=== PATIENT | male | born 1930 | race Caucasian/White ===

== ENCOUNTER → 2018-06-14 | Day surgery (SDC) | payer MEDICARE, BC ==
[2018-06-13 15:47] LABS: BASOPHILS % 0.7 % (0.0-1.0); EOSINOPHILS # (AUTO) 0.2 (0.0-0.4); EOSINOPHILS % 3.5 % (0.0-6.0); HEMATOCRIT 42.1 % (38.2-49.6); LYMPHOCYTES % 17.3 % (18.0-39.1); MEAN CORPUSCULAR HEMOGLOBIN 31.5 pg (28-32); MEAN CORPUSCULAR HGB CONC 33.3 g/dL (31-35); MEAN CORPUSCULAR VOLUME 94.6 fL (81-99); MONOCYTES # (AUTO) 0.5 (0.2-0.8); MONOCYTES % 8.5 % (4.4-11.3); NEUTROPHILS # (AUTO) 4.2 (2.1-6.9); NEUTROPHILS % 69.7 % (38.7-80.0); PLATELET COUNT 169 x10e3/uL (140-360); RED BLOOD COUNT 4.45 x10e6/uL (4.3-5.7); RED CELL DISTRIBUTION WIDTH 12.4 % (11.7-14.4)
[2018-06-13 16:10] LABS: ALANINE AMINOTRANSFERASE < 6 IU/L (0-55); ALBUMIN 3.7 g/dL (3.5-5.0); ALBUMIN/GLOBULIN RATIO 1.2 (0.8-2.0); ALKALINE PHOSPHATASE 66 IU/L (40-150); ANION GAP 9.5 mmol/L (8-16); BLOOD UREA NITROGEN 16 mg/dL (7-26); BUN/CREATININE RATIO 16 (6-25); CALCIUM 9.5 mg/dL (8.4-10.2); CARBON DIOXIDE 26 mmol/L (22-29); CHLORIDE 103 mmol/L (98-107); CREATININE, SERUM 0.98 mg/dL (0.72-1.25); EST GLOMERULAR FILTRATION RATE > 60 ML/MIN (60-); GLUCOSE 98 mg/dL (74-118); POTASSIUM 4.5 mmol/L (3.5-5.1); SODIUM 134 mmol/L (136-145)
[~2018-06-14] VITALS: Ht 171.4 cm; Wt 59.0 kg
[2018-06-14] VITALS (12 sets, daily range): BP systolic 136–181; BP diastolic 83–99
[~2018-06-14] MED LIST: ALPRAZOLAM 0.5 MG TAB ONE; CARBIDOPA-LEVO1 EAC4 PO; DIPHENHYDRAMINE HCL 25 MG CAP ONE; FENTANYL CITRATE/PF 100MCG/2 ML INJ ONE; FINASTERIDE5 MG PO; FLOMAX0.4 MG PO; HEPARIN SOD/SOD CHLORIDE 2,000 ML ONE; IOPAMIDOL 300MG/ML 100 ML INFUS..BTL IV ONE; LIDOCAINE HCL 2% LOCAL 20 ML VIAL ONE; LIPITOR20 MG PO; METOPROLOL TART25 MG PO; MIDAZOLAM HCL 2 MG/2 ML VIAL ONE; NEUPRO1 EAC1 TD; OMEGA XL PO; PRILOSEC OTC20 MG PO; SENOKOT-S TABL1 EACH PO; SINEMET 25-1001 EACH PO; SODIUM CHLORIDE 0.9% 1000ML 1,000 ML ONE; [UNRECOGNIZED DRUG - OTHER] PO; [UNRECOGNIZED DRUG - OTHER] PO; [UNRECOGNIZED DRUG - OTHER] PO; [UNRECOGNIZED DRUG - OTHER] PO
--- NOTE | 2018-06-14 14:05 | NUR ---
Patient brought back to ACU bay 7. Patient being prepped in usual fashion for left heart catherization procedure.
--- OUTSIDE RECORDS SUMMARY | 2018-06-14 14:08 | XMS REPORT | Clinical Summary ---
Author Author [facility] Address Unknown Phone Unavailable Care Team Providers Care Assembly Line Machine Operator Name Role Phone Sampson Baxter MD PCP Allergies No Known Allergies Medications End Date Status Medication Sig Dispensed Refills Start Date Active tamsulosin (FLOMAX) 0.4 Take 0.4 mg 0 mg capsule,extended by mouth release 24hr daily. Active omeprazole (PriLOSEC) 20 Take 20 mg by 0 MG capsule mouth daily. Active UNABLE TO FIND Take 1 tablet 0 by mouth daily. Med Name: Ultimate Prostate Formula Active UNABLE TO FIND Take 1 tablet 0 by mouth daily. Med Name: Niacin / Zinc Active finasteride (PROSCAR) 5 Take 5 mg by 3 mg tablet mouth 8 nightly. Active sennosides/docusate Take by 0 sodium (SENOKOT-S ORAL) mouth. 01/29/2019 Active carbidopa-levodopa Take 2 540 tablet 3 (SINEMET) 25-100 mg per tablets by 8 tablet mouth 3 (three) times a day. 02/12/2019 Active carbidopa-levodopa Take 1 tablet 90 tablet 3 (SINEMET CR) 50-200 mg by mouth 8 per CR tablet nightly. Active multivitamin with Take 1 tablet 0 minerals tablet by mouth daily. Active metoprolol tartrate Take 12.5 mg 0 (LOPRESSOR) 25 mg tablet by mouth daily. 10/11/2017 Discontinued metoprolol tartrate Take 25 mg by 0 (LOPRESSOR) 25 mg tablet mouth daily. 03/11/2018 Discontinued CHOLECALCIFEROL, VITAMIN Take 2,500 mg 0 D3, (VITAMIN D3 ORAL) by mouth daily. 03/11/2018 Discontinued OMEGA-3 FATTY ACIDS/FISH Take 650 mg 0 OIL (OMEGA 3 FISH OIL by mouth ORAL) daily. 03/11/2018 Discontinued CALCIUM POLYCARBOPHIL Take 1 tablet 0 (PERDIEM ORAL) by mouth as needed. 10/11/2017 Discontinued linaclotide (LINZESS) 145 Take 145 mcg 0 mcg capsule by mouth daily. 01/15/2018 carbidopa-levodopa Take 2 540 tablet 3 (SINEMET) 25-100 mg per tablets by 7 tablet mouth 3 (three) times a day. 10/11/2017 Discontinued donepezil (ARICEPT) 10 MG Take 1 tablet 30 tablet 3 tablet (10 mg total) 7 by mouth nightly. 02/12/2018 Discontinued carbidopa-levodopa Take 1 tablet 30 tablet 11 (SINEMET CR) 50-200 mg by mouth 8 per CR tablet nightly. 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/2016 Encounters Care Team Description Date Type Specialty Esvin Hansen MD Parkinson disease (HCC) (Primary Dx); Mild cognitive impairment; Idiopathic peripheral neuropathy; Gait disorder; Obstructive sleep apnea; REM sleep behavior disorder 03/11/2018 Office Visit Neurology Daisy Rockwell MA 02/12/2018 Telephone Neurology Esvin Hansen MD 01/29/2018 Refill Neurology Daisy Rockwell MA 10/18/2017 Telephone Neurology Daisy Rockwell MA 10/12/2017 Telephone Neurology Esvin Hansen MD Parkinson disease (Primary Dx); Mild cognitive impairment; Idiopathic peripheral neuropathy; Obstructive sleep apnea; Gait disorder; REM sleep behavior disorder 10/11/2017 Office Visit Neurology Esvin Hansen MD Parkinson disease (Primary Dx); Idiopathic peripheral neuropathy; Mild cognitive impairment; Gait disorder; REM sleep behavior disorder; Obstructive sleep apnea 06/19/2017 Office Visit Neurology after 06/13/2017 Family History Medical History Relation Name Comments Stroke Father Cancer Mother Relation Name Status Comments Father (Age 71) Mother (Age 48) Social History Date Tobacco Use Types Packs/Day Years Used Quit: 1966 Former Smoker Cigarettes, Pipe Smokeless Tobacco: Never Used Tobacco Cessation: Counseling Given: Yes Alcohol Use Drinks/Week oz/Week Comments Yes socially (wine/beer) Sex Assigned at Date Recorded Not on file Industry Job Start Date Occupation Not on file Not on file Not on file Travel End Travel History Travel Start No recent travel history available. 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 Height 165.1 cm (5' 5") 03/11/2018 3:23 PM AUTO SERVICE DISPATCHER Body Mass Index 21.6 Plan of Treatment Care Team Description Date Type Specialty Esvin Hansen MD [address] [facility] [address] [place] [address] 09/12/2018 Office Visit Neurology Health Maintenance Due Date Last Done Comments SHINGLES VACCINES (#1) 1980 65+ PNEUMOCOCCAL VACCINE 1995 (1 of 2 - PCV13) PNEUMOCOCCAL 1995 POLYSACCHARIDE VACCINE AGE 65 AND OVER INFLUENZA VACCINE 11/07/2017 Results Not on fileafter 06/13/2017 Insurance Payer Benefit Subscriber ID Type Phone Address Plan / Group MEDICARE MEDICARE xxxxxxxxxx Medicare [place], [place] PART A AND B BCBS BCBS xxxxxxxxx PPO CHOICE PPO/PANCHITO BARRIENTOS PPO Advance Directives Patient has advance care planning documents on file. For more information, charlotte desai contact: Serge May [address] [place] [place] [address]
--- OUTSIDE RECORDS SUMMARY | 2018-06-14 14:08 | XMS REPORT ---
Author Author [facility] Address Unknown Phone Unavailable Care Team Providers Care Technical Program Manager Name Role Phone Unavailable Unavailable Payers Payer Name Policy Type Policy Number Effective Date Expiration Date Problems This patient has no known problems. Allergies, Adverse Reactions, Alerts Allergy Name Allergy Type Status Severity Reaction(s) Onset Date Inactive Date Treating Clinician Comments No Known Allergies DA Active U 2018-06-11 00:00:00 No Known Contrast Allergies DA Active U 2004-06-25 00:00:00 No Known Drug Allergies DA Active U 2004-06-25 00:00:00 No Known Food Allergies DA Active U 2004-06-25 00:00:00 No Known Other Allergies DA Active U 2004-06-25 00:00:00 No Known Drug Intolerances DA Active U 2001-10-25 00:00:00 Medications This patient has no known medications. Results Test Description Test Time Test Comments Text Results Atomic Results Result Comments - MRA HEAD W/O CONTRAST 2018-06-11 22:31:00 FAX: Mindy Jones [phone] [place]: St: ADM FAX: Sampson España MD [phone] FAX: Arie Thomas MD [phone] Name: SHAKIRA TODD [facility] Nori Pittman : 1930 Age/S: 88/M [address] [place] [address] Blvd Unit #: [id number] Loc: [place] [address] Phys: Mindy Snow MD Acct: [id number] Dis Date: Status: ADM IN PHONE #: [phone] Exam Date: 06/11/20182110 FAX #: [phone] Reason: transient dysarthria EXAMS: CPT CODE: [id number] MRA HEAD W/O CONTRAST 82735 Study: - MRA HEAD W/O CONTRAST 06/11/2018 7:47 PM Patient Name: SHAKIRA TODD MR: [id number] : 1930; Age: 88 years y/o Male Ordering Physician: Mindy Almeida MD Clinical Indication: transient dysarthria Comparison: None Technique: Magnetic resonance angiography of the [place] of [place] was performed without contrast. Three-dimensional rotational images were also prepared. FINDINGS: ANTERIOR CIRCULATION: INTERNAL CAROTID ARTERIES: No focal stenosis or aneurysm. MIDDLE CEREBRAL ARTERIES: No focal stenosis or aneurysm in the M1 and M2 segments. The peripheral MCA branches appear normal. ANTERIOR CEREBRAL ARTERIES: No focal stenosis or aneurysm. Normal anterior communicating artery. POSTERIOR CIRCULATION: VERTEBROBASILAR SYSTEM: No focal stenosis or aneurysm. POSTERIOR CEREBRAL ARTERIES: No focal stenosis or aneurysm. Persistent origin of the right posterior cerebral artery. SUPERIOR CEREBELLAR ARTERIES: Normal in appearance. AICA: Normal in appearance. PICA: Normal right PICA. The left PICA is never well demonstrated. IMPRESSION: PAGE 1 Signed Report (CONTINUED) FAX: Mindy Jones [place]: St: [facility] FAX: Sampson España MD [phone] FAX: Arie Thomas MD [phone] Name: SHAKIRA TODD [facility] : 1930 Age/S: 88/M [address] [place] [address] Blvd Unit #: [id number] Loc: [place] [address] Phys: Mindy Snow MD Acct: [id number] Dis Date: Status: ADM IN PHONE #: [phone] Exam Date: 06/11/20182110 FAX #: [phone] Reason: transient dysarthria EXAMS: CPT CODE: [id number] MRA HEAD W/O CONTRAST 85738 <Continued> 1. Nonvisualized left PICA. However, no acute stroke is seen on MR brain without contrast performed at the same time. 2. Normal variant persistent origin of the right posterior cerebral artery. at 2231 Reported and signed by: Bala Riley M.D. CC: Mindy Almeida MD; Sampson Baxter MD; Arie De Souza MD Technologist: RT [place](R)(CT) [facility] Date/Time/By: 06/11/2018 (2230) : By: [email or web address] Orig Print D/T: S: 06/11/2018 (2984) PAGE 2 Signed Report - MRA NECK W/CONT 2018-06-11 22:26:00 FAX: Mindy Jones [phone] [place]: St: ADM FAX: Sampson España MD [phone] FAX: Arie Thomas MD [phone] Name: SHAKIRA TODD [facility] : 1930 Age/S: 88/M [address] [place] [address] Blvd Unit #: [id number] Loc: [place] [address] Phys: Mindy Snow MD Acct: [id number] Dis Date: Status: ADM IN PHONE #: [phone] Exam Date: 06/11/20182110 FAX #: [phone] Reason: transient dysarthria EXAMS: CPT CODE: [id number] MRA NECK W/CONT 46758 Study: - MRA NECK W/CONT 06/11/2018 7:47 PM Patient Name: SHAKIRA TODD MR: [id number] : 1930; Age: 88 years y/o Male Ordering Physician: Mindy Almeida MD Clinical Indication: transient dysarthria Comparison: None TECHNIQUE: Magnetic resonance angiography of the neck was performed with and without intravenous contrast. Three-dimensional rotational images were also prepared. IV contrast: MultiHance 12 mL. MRA NECK Aortic arch and great vessel origins: No significant atherosclerosis, narrowing, aneurysm, or dissection. Brachiocephalic trunk: No significant atherosclerosis, narrowing, aneurysm, or dissection. Subclavian arteries: No significant narrowing in the visualized portions after accounting for mild artifact. Right carotid artery: Mildly tortuous normal caliber right common carotid artery. Approximately 50-60% narrowing is suspected at the right cervical ICA origin. The remaining portions of the right cervical ICA are normal. Left carotid artery: Normal without evidence of significant atherosclerosis, narrowing, or dissection. Vertebral arteries: No significant atherosclerosis, narrowing, or dissection. Any reported ICA stenosis directly references the distal internal carotid diameter as the denominator for stenosis measurement. PAGE 1 Signed Report (CONTINUED) FAX: Mindy Jones [phone] [place]: St: ADM FAX: Sampson España MD [phone] FAX: Arie Thomas MD [phone] Name: SHAKIRA TODD [facility] [place] : 1930 Age/S: 88/M [address] [place] [address] Unit #: [id number] Loc: [place] [address] Phys: Mindy Snow MD Acct: [id number] Dis Date: Status: ADM IN PHONE #: [phone] Exam Date: 06/11/2018 211 FAX #: [phone] Reason: transient dysarthria EXAMS: CPT CODE: [id number] MRA NECK W/CONT 42103 <Continued> IMPRESSION: Approximately 50-60% narrowing of the right cervical ICA origin. SL: TPAINTER-H at 2226 Reported and signed by: Bala Riley M.D. CC: Mindy Almeida MD; Sampson Baxter MD; Arie De Souza MD Technologist: RT [place](R)(CT) Trnscrd Date/Time/By: 06/11/2018 (2225) : By: [email or web address] Orig Print D/T: S: 06/11/2018 (8874) PAGE 2 Signed Report - MRI BRAIN WO/W CONT 2018-06-11 22:13:00 FAX: Mindy Jones [phone] [place]: St: ADM FAX: Sampson España MD [phone] FAX: Arie Thomas MD [phone] Name: SHAKIRA TODD [facility] [place] : 1930 Age/S: 88/M [address] [place] [address] Unit #: [id number] Loc: [place] [address] Phys: Mindy Snow MD Acct: [id number] Dis Date: Status: ADM IN PHONE #: [phone] Exam Date: 06/11/20182110 FAX #: [phone] Reason: transient dysarthria EXAMS: CPT CODE: [id number] MRI BRAIN WO/W CONT 58711 Study: - MRI BRAIN WO/W CONT 06/11/2018 7:47 PM Patient Name: SHAKIRA TODD MR: [id number] : 1930; Age: 88 years y/o Male Ordering Physician: Mindy Almeida MD Clinical Indication: transient dysarthria Comparison: CTA head 06/11/2018. TECHNIQUE: TECHNIQUE: Multiplanar precontrast and postcontrast MRI of the brain was performed on a 1.5 More magnet. Contrast: MultiHance 12 mL. FINDINGS: BRAIN PARENCHYMA: General: Mild to moderate diffuse age-appropriate cerebral atrophy associated with mild nonspecific abnormal signal in the periventricular deep white matter most consistent with old microangiopathic ischemic change. Minimal old pontine ischemic change. Vent ricles: Normal size and appearance. Enhancement: No abnormal enhancement. Acute Findings: No evidence of acute intracranial hemorrhage, mass, mass effect, midline shift, or extra-axial fluid collection. Diffusion Weighted Images: No evidence of restricted diffusion to suggest acute or subacute ischemia. Gradient Images: No abnormal hypointense signal to suggest old hemorrhage. Midline Structures: The pituitary gland, corpus callosum, and remaining midline structures PAGE 1 Signed Report (CONTINUED) FAX: Mindy Jones [phone] [place]: St: [facility] FAX: Sampson España MD [phone] FAX: Arie Thomas MD [phone] Name: SHAKIRA TODD [facility] : 1930 Age/S: 88/M [address] [place] [address] Blvd Unit #: [id number] Loc: [place] [address] Phys: Mindy Snow MD Acct: [id number] Dis Date: Status: ADM IN PHONE #: [phone] Exam Date: 06/11/20182110 FAX #: [phone] Reason: transient dysarthria EXAMS: CPT CODE: [id number] MRI BRAIN WO/W CONT 34045 <Continued> are normal. VASCULATURE: Arterial: The major intracranial arterial flow voids are present. Venous: The dural venous sinus flow voids are grossly normal. PARANASAL SINUSES: Minimal mucoperiosteal thickening in the ethmoid sinus. MASTOIDS: Clear. SOFT TISSUES AND ORBITS: The visualized portions are normal. IMPRESSION: Mild to moderate diffuse age- appropriate cerebral atrophy associated with mild nonspecific abnormal signal in the periventricular deep white matter most consistent with old microangiopathic ischemic change. Minimal old pontine ischemic change. No acute intracranial abnormality. Minimal chronic sinusitis. SL: TPAINTER-H at 2213 Reported and signed by: Bala Riley M.D. CC: Mindy Almeida MD; Sampson Baxter MD; Arie De Souza MD Technologist: RT [place](R)(CT) Trnscrd Date/Time/By: 06/11/2018 (8093) : By: [email or web address] Orig Print D/T: S: 06/11/2018 (9962) PAGE 2 Signed Report TROPONIN-I 2018-06-11 21:02:00 TROPONIN-I (test code=TROPI) 0.195 ng/mL 0.000-0.045 Negative: <=0.045 Positive: >=0.046 Correlation with serial results, other cardiac markers andclinical findings is necessary to determine the clinicalsignificance of this result. Results using different methodologies should not be comparedto one another as quantitative results may vary by method. COMMENTS: 3 troponins total (including troponin done in ED)- XR CHEST 1 V 2018-06-11 19:13:00 FAX: Mayi Wilkins MD [phone] [place]: St: [facility] FAX: Sampson España MD [phone] Name: SHAKIRA TODD [facility] : 1930 Age/S: 88/M [address] [place] [address] Blvd Unit #: [id number] Loc: [place] [address] Phys: Mayi Wilkins MD Acct: [id number] Dis Date: Status: ADM IN PHONE #: [phone] Exam Date: 06/11/2018 1844 FAX #: [phone] Reason: chest pain EXAMS: CPT CODE: [id number] XR CHEST 1 V 16072 CHEST, ONE VIEW: HISTORY: Acute chest pain. COMPARISON EXAM(S): None available FINDINGS: This single portable view was obtained at 1840 hours on 06/11/2018 and shows the cardiac silhouette to be within normal limits and no acute infiltrates or effusions. There is evidence of air trapping. Degenerative changes are noted at the shoulders. IMPRESSION: 1. No acute changes. 2. Air trapping suggesting underlying emphysematous changes. 3. No prior exams for comparison. SL:01 at 1913 Reported and signed by: Jose Angel Novoa M.D. CC: Mayi Wilkins MD; Sampson Baxter MD Technologist: RT Cam(R) Trnscrd Date/Time/By: 06/11/2018 (1912) : By: [email or web address] Orig Print D/T: S: 06/11/2018 (1915) PAGE 1 Signed Report LIPOPROTEIN [id number] 18:18:00* Test Item Value Reference Range Comments LIPOPROTEIN LDL (test code=LDL) 123 mg/dL 0-100 <100 [id number] NEAR OPTIMAL/ABOVE [id number] HIGH>SU=348 VERY HIGH*Guidelines provided by the National Cholesterol EducationProgram Adult Treatment Panel III BASIC METABOLIC [id number] 17:51:00* Test Item Value Reference Range Comments SODIUM (test code=NA) 140 mEq/L 134-147 POTASSIUM (test code=K) 3.9 mEq/L 3.4-5.0 CHLORIDE (test code=CL) 109 mEq/L 100-108 CARBON DIOXIDE (test code=CO2) 24 mEq/L 21-33 ANION GAP (test code=GAP) 11 0-20 GLUCOSE (test code=GLU) 103 mg/dL 70-110 BLOOD UREA NITROGEN (test code=BUN) 17 mg/dL 7-18 GLOMERULAR FILTRATION RATE (test code=GFR) 57.1 70-80 Units of measure=ml/min/1.73 m2 CREATININE (test code=CREAT) 1.2 mg/dL 0.6-1.3 CALCIUM (test code=CA) 8.9 mg/dL 8.0-10.5 [id number] 17:51:00* Test Item Value Reference Range Comments TROPONIN-I (test code=TROPI) 0.225 ng/mL 0.000-0.045 Negative: <=0.045 Positive: >=0.046 Correlation with serial results, other cardiac markers andclinical findings is necessary to determine the clinicalsignificance of this result. Results using different methodologies should not be comparedto one another as quantitative results may vary by method. PROTHROMBIN [id number] 17:25:00* Test Item Value Reference Range Comments PROTHROMBIN TIME PATIENT (test code=PTP) 12.0 SECONDS 9.3-12.9 INTERNATIONAL NORMAL RATIO (test code=INR) 1.1 0.8-1.2 TARGET INR BY INDICATION Indication INR1. Prophylaxis of venous thrombosis 2.0 - 3.0 (orthopedic surgery), Prophylaxis of venous thrombosis (other than high-risk surgery), Treatment of Deep Vein Thrombosis/Pulmonary Embolism, Prevention of systemic embolism - Tissue heart valves, Acute Myocardial Infarction (to prevent systemic embolism), Valvular heart disease, Atrial Fibrillation, Bileaflet mechanical valve in aortic position.2. Mechanical prosthetic valves (high risk), 2.5 - 3.5 Presence of Lupus Anticoagulant or Antiphospholipid Antibodies, Prevention of systemic embolism - Acute Myocardial Infarction (to prevent recurrent infarct). THROMBOPLASTIN TIME [id number] 17:25:00* Test Item Value Reference Range Comments THROMBOPLASTIN TIME PARTIAL (test code=PTT) 18.9 Seconds 25.0-39.5 Therapeutic Range: 61.8-83.8 Sec Effective 05/07/2013 - CT HEAD/BRAIN W/O [id number] 17:21:00 Name: SHAKIRA TODD [facility] : 1930 Age/S: 88 / M [address] [place] [address] Unit #: [id number] Loc: [place] [address] Phys: Mayi Wilkins MD Acct: [id number] Dis Date: Status: REG ER PHONE #: [phone] Exam Date: 06/11/2018 1710 FAX #: [phone] Reason: CODE NEURO - SLURRED SPEECH [facility] 1615 EXAMS: CPT CODE: [id number] CT HEAD/BRAIN W/O CONT 90636 Patient: SHAKIRA TODD. : 1930; Age: 88 years; Gender: Male. MR: [id number]. Ordering physician: Mayi Wilkins MD. CT BRAIN WITHOUT INTRAVENOUS CONTRAST: HISTORY: Code neuro, slurred speech. COMPARISON: . FINDINGS: Computed tomography of the brain was performed utilizing contiguous transaxial sections from skull base to the vertex without the administration of intravenous contrast. Coronal and sagittal reformatted images were obtained. CT imaging was performed with exposure control parameters to reduce radiation dose. Total DLP: 419.70 mGy-cm There is prominence of the ventricles, cortical sulci and basilar cisterns compatible with age related involutional c hange. Periventricular and subcortical white matter hypodensities are compatible with age related small vessel microvascular change. 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 There is no evidence of midline shift, mass lesion, intraparench ymal hemorrhage, acute infarction, extra-axial collection or skull f racture. The posterior fossa is unremarkable. The partially visua lized orbits, paranasal sinuses and mastoid air cells are unremarkable. Old krissy holes noted. IMPRESSION: 1. No evidence of acute intracranial pathology. 2. Age related invo lutional and small vessel microvascular changes as described. 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 These findings were discussed with Anne Wilkins MD on 06/11/2018 5:18 PM. PAGE 1 Signed Report (CONTINUED) [facility]: [facility] 1930 Ag e/S: 88 / M [address] [place] [address] Blvd Unit #: [id number] Loc: [place] [address] Phys: Mayi Wilkins MD Acct: [id number] Dis Date: Status: REG ER PHONE #: [phone] Exam Date: 06/11/2018 1710 FAX #: [phone] Reason: CODE NEURO - SLURRED SPEECH [facility] 1615 EXAMS: CPT CODE: [id number] CT HEAD/BRAIN W/O CONT 85849 <Continued> SL: [id number] at 1721 Reported and signed by: Byron Honeycutt M.D. CC: Mayi Wilkins MD Technologist:Fiona Flores, RT(R) CTDI: DLP: Trnscb Date/Time: 06/11/2018 (1720) [email or web address] Orig Print D/T: S: 06/11/2018 (172) CTDI: DLP: PAGE 2 Signed Report CBC W/O [id number] 17:17:00* Test Item Value Reference Range Comments WHITE BLOOD CELL (test code=WBC) 6.78 x10 3/uL 4.5-11.0 RED BLOOD CELL (test code=RBC) 4.77 x10 6/uL 4.00-5.60 HEMOGLOBIN (test code=HGB) 14.9 g/dL 12.5-16.9 HEMATOCRIT (test code=HCT) 46.3 % 37.5-50.7 MEAN CELL VOLUME (test code=MCV) 97.1 fL 81.0-99.0 MEAN CELL HGB (test code=MCH) 31.2 pg 27.0-33.0 MEAN CELL HGB CONCETRATION (test code=MCHC) 32.2 g/dL 33.0-37.0 RED CELL DISTRIBUTION WIDTH CV (test code=RDW) 12.2 % 11.5-14.5 RED CELL DISTRIBUTION WIDTH SD (test code=RDW-SD) 44.2 fL 37.0-54.0 PLATELET COUNT (test code=PLT) 134 x10 3/uL 150-400 MEAN PLATELET VOLUME (test code=MPV) 10.9 fL 7.0-9.0
--- NOTE | 2018-06-14 16:50 | NUR ---
Continuity of care to [facility] ACU 7 review of procedural findings, orders and medications given. Patient drowsy, easily aroused. maintains airway and room air saturations of 98-99%. No gross issues of pressure, pain, pallor or dysrhythmia. IV site patent with NS 0.9% at 75ml/hr by dial-flow to left hand. patient hemodynamically stable with hemostasis. right groin dressing CDI w/o s/s of bleeding. patient transferred to [facility] assist w/o incident. transported out of procedure room - [facility] procedure: Diagnostic coronary angiography and right femoral sheath ogram Sheath puller: Dr Zaldivar , unsuccessful toritolose, Rolo FLOOR INSTALLER holding manual pressure Meds Given Intra-Procedure Sedatives Versed - 0.5 mg Fentanyl - 25 mcg Fluids Input - 100ml Output - dtv Contrast Isovue 370 - 50ml
--- NOTE | 2018-06-14 17:11 | NUR ---
Kitchen notified of diet order.
--- NOTE | 2018-06-14 18:05 | NUR ---
1805pm Received report from Jack ALMARAZ s/o [facility] findings Moderated CAD. DR Zaldivar case with medical RX fix. Rt groin approach with Perclose device. Site with no bleeding or hematoma. Dressing dry and intact.PPx4 PD/DT palpable. Baseline orientation achieved with pt known Parkinson Dz and fall risk. Call light at bedside, bed in low position, side rails up. Resp regular with 100% sat. on room air. Abdomen soft and non tender denies necessity to defecate. Voided x2 300+ cc clear urine.Daughter Bernarda Smith at bedside. Schedule time for dc 20:30pm. POC discussed with family at bedside and papers signed and given pt. Dr Smith was at bedside and no teachings needs assessed. ds/nilay
--- NOTE | 2018-06-14 20:00 | NUR ---
Pt has been resting during this time w/o incident of pain, sob, or need. right groin dressing with trace pale blood. no hematoma, right leg warm and dry, pulses present. VS wnl w/ slight trend up. tolerated modest PO., voided 400ml total between 2 separate voidings. family has remained at bedside during this time w/ offers to break. -cgf
--- NOTE | 2018-06-14 20:15 | NUR ---
2015 HOB elevated Rt groin site w/o hematoma or bleeding. Bilateral PPx4 .Ate few bites tolerating well. Assist dressing and dc per w/c in accompiance of daughter at 2030pm. Family has POc and papers and knows importance of followup care. Pt denies C/o CP or SOB. Stasis remains achieved at groin suture site. Pt vs and ekg stable on discharge to home care Family to stay with pt tonight. erick/nilay Addendum: 06/14/18 at 2252 by Lorenza Haney RN Iv was removed Pressure with stasis achieved and 2x2 dressing and Coban applied to iv site area No bruising or bleeding noted.
--- NOTE | 2018-06-25 13:42 | Operative Report ---
DATE OF PROCEDURE: 06/14/2018 SURGEON: Ramírez Zaldivar MD INDICATION: Coronary artery disease, abnormal stress test. PROCEDURES PERFORMED: 1. Left heart catheterization, selective coronary angiography. 2. Deployment of failed right groin probe, Rodríguez Perclose closure device. COMPLICATIONS: None. RECOMMENDATIONS: Medical therapy. DESCRIPTION OF PROCEDURE: Access obtained in the right femoral artery. A 6-[place] sheath was placed. Diagnostic coronary angiogram revealed moderate coronary artery disease, diffuse 30% to 50% stenosis. Right coronary artery was nondominant. No focal critical stenosis or occlusions were noted that required intervention. Right groin sheath removed under manual pressure following failure of Perclose closure device. The patient discharged home same day. Ramírez Zaldivar MD [facility] /[id number]
== END | disposition home or self-care (01) ==
LOC: CATH LAB 14:05
PROVIDERS: ATTEND Internal Medicine Interventional Cardiology
DX: I25.10 Atherosclerotic heart disease of native coronary artery without angina pectoris (principal); R94.39 Abnormal result of other cardiovascular function study; Z01.812 Encounter for preprocedural laboratory examination; Z86.73 Personal history of transient ischemic attack (TIA), and cerebral infarction without residual deficits
CPT/HCPCS: 36415; 80053; 85025; 93454; C1725; C1769; J2001; J2250; J7030; Q9967

== ENCOUNTER 2019-03-12 09:15 | Emergency (ER) | payer MEDICARE, BC ==
[~2019-03-12] VITALS: Ht 171.4 cm; Wt 56.7 kg
[~2019-03-12 09:15] MED LIST changes: -ALPRAZOLAM 0.5 MG TAB ONE; -DIPHENHYDRAMINE HCL 25 MG CAP ONE; -FENTANYL CITRATE/PF 100MCG/2 ML INJ ONE; -HEPARIN SOD/SOD CHLORIDE 2,000 ML ONE; -IOPAMIDOL 300MG/ML 100 ML INFUS..BTL IV ONE; -LIDOCAINE HCL 2% LOCAL 20 ML VIAL ONE; -MIDAZOLAM HCL 2 MG/2 ML VIAL ONE; -SODIUM CHLORIDE 0.9% 1000ML 1,000 ML ONE
[2019-03-12] MEDS ORDERED: ONDANSETRON HCL INJ 2MG/ML 2ML 2 MG/ML VIAL IV STA (09:32)
[2019-03-12] MEDS ORDERED: SODIUM CHLORIDE 0.9% 1000ML 500 ML IV STA (09:32)
[2019-03-12] MEDS ORDERED: PANTOPRAZOLE 40 MG 10ML VIAL IV STA (09:32)
[2019-03-12] MEDS ORDERED: DONNATAL/LIDOCAINE/MAALOX 30 ML SUSP PO ONE (09:45)
--- NOTE | 2019-03-12 10:27 | Diagnostic Imaging Report ---
Chest, 1 view, 03/12/2019. History: Swallowed pill, felt burning sensation in the neck. Comparison: None available. Findings: The cardiomediastinal silhouette and pulmonary vasculature are within normal limits for a portable exam. There is no focal consolidation or pleural effusion. Degenerative changes are present in the right shoulder and thoracic spine. Loop recorder device is noted. There are no acute osseous or soft tissue abnormalities. Impression: No acute cardiopulmonary abnormality. Signed by: Bari Cartwright on 03/12/2019 10:24 AM
--- NOTE | 2019-03-12 10:32 | Diagnostic Imaging Report ---
Soft tissue neck, 2 views. History: Swallowed pill, burning sensation in the neck. Discussion: Advanced degenerative changes are noted throughout the cervical spine. Prevertebral soft tissues are within normal limits. A 1.1 cm oval irregularly marginated density is seen in the right lateral neck at the level of C4-C5, not projected within the airway. Airway appears patent. IMPRESSION: Right lateral neck irregular oval density suggestive of soft tissue calcification rather than retained pill. Signed by: Bari Cartwright on 03/12/2019 10:28 AM
[2019-03-12 10:47] LABS: BASOPHILS # (AUTO) 0.1 (0.0-0.1); BASOPHILS % 0.7 % (0.0-1.0); EOSINOPHILS # (AUTO) 0.1 (0.0-0.4); EOSINOPHILS % 1.2 % (0.0-6.0); HEMATOCRIT 41.8 % (38.2-49.6); LYMPHOCYTES # (AUTO) 0.7 (1.0-3.2); LYMPHOCYTES % 10.9 % (18.0-39.1); MEAN CORPUSCULAR HGB CONC 33.5 g/dL (31-35); MEAN CORPUSCULAR VOLUME 92.5 fL (81-99); MONOCYTES # (AUTO) 0.6 (0.2-0.8); MONOCYTES % 9.3 % (4.4-11.3); NEUTROPHILS # (AUTO) 5.2 (2.1-6.9); NEUTROPHILS % 77.5 % (38.7-80.0); PLATELET COUNT 190 x10e3/uL (140-360); RED BLOOD COUNT 4.52 x10e6/uL (4.3-5.7); RED CELL DISTRIBUTION WIDTH 12.3 % (11.7-14.4)
[2019-03-12 11:23] LABS: ALBUMIN 3.8 g/dL (3.5-5.0); ALBUMIN/GLOBULIN RATIO 1.4 (0.8-2.0); ALKALINE PHOSPHATASE 68 IU/L (40-150); BLOOD UREA NITROGEN 19 mg/dL (7-26); BUN/CREATININE RATIO 21 (6-25); CALCIUM 9.4 mg/dL (8.4-10.2); CARBON DIOXIDE 25 mmol/L (22-29); CHLORIDE 101 mmol/L (98-107); CREATINE KINASE 34 IU/L (30-200); EST GLOMERULAR FILTRATION RATE > 60 ML/MIN (60-); GLUCOSE 107 mg/dL (74-118); LIPASE 13 U/L (8-78); SODIUM 135 mmol/L (136-145)
[2019-03-12 11:25] LABS: ALANINE AMINOTRANSFERASE < 6 IU/L (0-55)
== END 2019-03-12 12:13 | disposition home or self-care (01) ==
LOC: ER 09:15
DX: R09.89 Other specified symptoms and signs involving the circulatory and respiratory systems (principal); T18.9XXA Foreign body of alimentary tract, part unspecified, initial encounter; G50.0 Trigeminal neuralgia
CPT/HCPCS: 36415; 70360; 71045; 80053; 82550; 82553; 83690; 83735; 83880; 84484; 85025; 99283; C9113; J2405; J7030